=== PATIENT | male | born 2000 | race Caucasian/White ===

== ENCOUNTER 2021-10-12 06:40 | Day surgery (SDC) | payer BC ==
[2021-10-10 11:19] VITALS: BMI 30.1
[~2021-10-12 06:40] MED LIST: ACETAMINOPHEN TAB 500 MG TAB PO PRN; DEXAMETHASONE SOD PHOSPHATE 4 MG/ML 1 ML VIAL IV ONE; DEXAMETHASONE SOD PHOSPHATE 4 MG/ML 1 ML VIAL IV PRN; FAMOTIDINE 20 MG/2 ML VIAL IV PRN; LACTATED RINGERS 1,000 ML IV SCH; LIDOCAINE 1% (10MG/ML) FOR IV START INTRADERMA PRN; MELOXICAM 7.5 MG TAB PO PRN; MIDAZOLAM 2 MG/2 ML VIAL IV PRN; ONDANSETRON 4 MG/2 ML VIAL IVP ONE; ONDANSETRON 4 MG/2 ML VIAL IVP PRN
[2021-10-12] MEDS ORDERED: HYDROmorphone 0.5 MG/0.5 ML SYRINGE IVP PRN (07:00)
[2021-10-12] MEDS ORDERED: LIDOCAINE 1%-EPI 1:100,000 20 ML VIAL SQ ONE ×2 (08:14→08:32)
[2021-10-12] MEDS ORDERED: BUPIVACAINE (PF) 0.25% 30 ML VIAL SQ ONE ×2 (08:15→08:32)
[2021-10-12] MEDS ORDERED: PROPOFOL 10 MG/ML 20 ML VIAL IV ONE (08:17)
[2021-10-12] MEDS ORDERED: MIDAZOLAM 2 MG/2 ML VIAL ONE (08:17)
[2021-10-12] MEDS ORDERED: fentaNYL (PF) 50 MCG/ML 2 ML AMP ONE (08:17)
[2021-10-12] MEDS ORDERED: NALOXONE 0.4 MG/ML 1 ML VIAL ONE (08:17)
[2021-10-12] MEDS ORDERED: LIDOCAINE 1% INJ 10MG/ML (20 ML MDV) ONE (08:17)
[2021-10-12] MEDS ORDERED: SUCCINYLCHOLINE CHLORIDE 100 MG/5 ML SYR IV ONE (08:17)
[2021-10-12] MEDS ORDERED: LACTATED RINGERS 1,000 ML IV ONE ×2 (08:55→11:00)
[2021-10-12 09:19] VITALS: RESP 16; TEMP 98
--- NOTE | 2021-10-12 09:36 | P.OP ---
Date of Procedure: 10/12/21 Preoperative Diagnosis: Chronic hypertrophic tonsillitis Postoperative Diagnosis: same Procedure(s) Performed: modified coblation tonsillectomy Anesthesia: GEA Surgeon: Micky Pulido Estimated Blood Loss (ml): 0 Pathology: other (Tonsils) Condition: stable Disposition: PACU Indications for Procedure: This patient has had chronic tonsillitis was extremely hypertrophic tonsils with evidence of sleep apnea and snoring recurring sore throats etc. This is been a problem for many years and has failed aggressive medical therapy and surgical removal was recommended. All risks, benefits and alternative therapies were discussed. Consent was obtained and all questions were answered. Operative Findings: Tonsils extremely hypertrophic grade 4 over 4 Description of Procedure: Prior to surgery all risks, benefits, and alternative therapies were discussed in detail. Risks of bleeding, infection, need for secondary surgery, airway problems, anesthetic complications, etc. etc. were discussed in detail. Consent was obtained and all questions were answered. OPERATIVE PROCEDURE: This patient was taken to the operative room and placed in the supine position. A functioning IV line was in placed and the patient was mon itored throughout the entire case by the department of anesthesia. The patient underwent general anesthetic with intubation and tube was secured. A McIvor mouth gag was placed into the patients mouth with care to avoid any trauma to the lips, teeth, gums or tongue. Mouth was opened and tongue was depressed. The tonsils were grasped with an Allis forceps and brought medially bilaterally. A subcapsular dissection was performed utilizing an Evac-70 handpiece with an Arthrotec setting of 7. The tonsils were removed without incident bilaterally and the tonsillar fossae were inspected and bleeding was nonexistent and stopped spontaneously with Coblation. A Marcaine and lidocaine mixture was injected into the peritonsillar area for anesthesia postoperatively. The tonsillar fossae were reinspected and no bleeding was seen. The stomach was suctioned and the patient was taken to postanesthesia recovery in excellent condition having tolerated this procedure well. The patient will follow up in the office in one week as scheduled.
[2021-10-12] MEDS ORDERED: oxyCODONE-APAP 5-325MG 1 EACH TAB ONE (10:16)
[2021-10-12] MEDS ORDERED: oxyCODONE-APAP 5-325MG 1 EACH TAB PO ONE (10:25)
[2021-10-12 11:32] VITALS: BP 103/66; PULSE 98
== END 2021-10-12 11:54 | disposition home or self-care (01) ==
LOC: OR 06:40
PROVIDERS: ATTEND Otolaryngology
DX: J35.01 Chronic tonsillitis (principal); G47.30 Sleep apnea, unspecified; Z90.81 Acquired absence of spleen; Z98.890 Other specified postprocedural states; Z79.899 Other long term (current) drug therapy; Z88.1 Allergy status to other antibiotic agents; Z91.09 Other allergy status, other than to drugs and biological substances; Z82.5 Family history of asthma and other chronic lower respiratory diseases; Z83.2 Family history of diseases of the blood and blood-forming organs and certain disorders involving the immune mechanism; Z82.61 Family history of arthritis; Z84.89 Family history of other specified conditions
CPT/HCPCS: 88304; 42826; J2250; J1100; J2310; J2405; J2001; J3010; J0330; J2704; J1170